=== PATIENT | male | born 1985 | race Caucasian/White ===

== ENCOUNTER 2016-05-03 14:36 | Emergency (ER) | payer SELFPAY ==
--- OUTSIDE RECORDS SUMMARY | 2016-05-03 14:56 | XMS REPORT | Continuity of Care Document ---
:1985 Author Organization [facility] ([facility]) Address [address] [place] [address] Phone [phone] Care Team Providers Name Role Phone [phone], Self Referral Primary Care Provider [phone] Source Comments This disclosure is being made pursuant to the Care Everywhere program, applicable federal and state laws, and may not contain all informaitonavailable regarding this patient.[facility] ([facility]) Active Allergies and Adverse Reactions Allergen Noted Date Severity Reactions Comments Cephalexin Urticaria (Hives) Current Medications Not on file Active Problems Problem Noted Date 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 Social History Tobacco Use Types Packs/Day Years Used Date Never Assessed Last Filed Vital Signs Vital Sign Reading Time Taken Blood Pressure - - Pulse - - Temperature - - Respiratory Rate - - Height 1.755 m (5' 9.09") 10/25/2002 8:01 AM CDT Weight 92.298 kg (203 lb 7.7 oz) 10/25/2002 8:01 AM CDT Body Mass Index 29.97 10/25/2002 8:01 AM CDT Oxygen Saturation - - Plan of Care Health Maintenance Due Date Last Done Comments Hepatitis B Vaccine (1 of 3 - Primary Series) 1985 Tdap Vaccine 10/28/1995 Lipid Disorder Screening 2002 MMR Vaccine 2002 Td Vaccine 2002 Varicella Vaccine (1 of 2 - Adult - No Evidence of 2002 Immunity) Influenza Vaccine: Seasonal (#1) 10/20/2015 Results from Last 3 Months Not on file
[2016-05-03 14:59] LABS: Hematocrit 45.8 % (42.0-52.0); Hemoglobin 15.9 gm/dL (13.5-18.0); Mean Cell Volume 85.3 fl (78-100); Mean Corpuscular Hemoglobin 29.6 pg (27-31); Mean Corpuscular Hgb Conc 34.7 g/dl (32-36); Mean Platelet Volume 9.4 fl (6.0-9.5); Neutrophil % 64.9 % (42-75.0); Platelet Count 206 K/mm3 (150-450); Red Blood Count 5.37 M/mm3 (4.7-6.0); Red Cell Distribution Width 11.9 % (11.5-14.0); White Blood Count 7.7 K/mm3 (4.0-10.5)
--- NOTE | 2016-05-03 15:03 | ERNOTE ---
Chest Pain/Cardiac HPI Chief Complaint: Chest Pain Time Seen by Provider: 05/03/16 14:45 Source: patient Exam Limitations: no limitations Immunizations: IMMUNIZATION HX Immunizations Up to Date Yes History of Influenza Vaccine No Hx Pneumococcal Vaccination No Allergies/Adverse Reactions: Allergies amoxicillin [Amoxicillin] Allergy (Verified 05/03/16 14:45) Home Medications: HOME MEDICATIONS NK [No Home Medication] 05/03/16 [Last Taken Unknown] Narrative: Patient has had left sided chest pressure/dull pain for about three days. The pain is better with standing up, not worse with exertion. He had an atrial defect repaired at age 5, had a stress test for chest pain about 1 1/2 years ago. He also has a history of anxiety. Date (Duration): 04/30/16 Timing: intermittent Severity/Quality: moderate, dull, pressure Location: left chest Chest Pain Radiation: shoulders - left Activities at Onset: none Modifying Factors - Improves: Present: other - standing Modifying Factors - Worsens: Present: other - laying down. Absent: breathing, coughing, exercise Nitro Today/Relief: no nitro taken today Aspirin Treatment Today: no aspirin today Associated Symptoms: Absent: headache, shortness of breath, fever/chills, palpitations, heartburn, nausea, vomiting, abdominal pain Prior Chest Pain/Cardiac Workup: Reports: prior chest pain. Denies: heart attack, pulmonary embolism Prior Treatment: Denies: recently seen, currently on antibiotics Review of Systems - Review of Systems Constitutional: Present: fatigue, malaise. Absent: recent illness ENT: Absent: nose congestion, sore throat Respiratory: Absent: shortness of breath, cough Cardiology: Present: See HPI, chest pain Gastrointestinal/Abdominal: Absent: nausea, vomiting Genitourinary: Present: no symptoms reported Musculoskeletal: Present: other - pain in left shoulder blade ('feels like a pinched nerve') Neurological: Absent: headache, weakness, numbness - Patient's Past Medical History Patient History - Medical: Anxiety, GERD Patient History - Cardiac/Respiratory: Other - atrial defect repaired age [age] Patient History - Cancer: No Hx of Cancer Patient History - Surgical Procedures: Other Patient History - Other: None - Social History Living Situations: home Psych History: No pertinent hx - Immunizations Immunizations Up to Date: Yes Hx Pneumococcal Vaccination: No History of Influenza Vaccine: No Physical Exam - Physical Exam General Appearance: Present: wd/wn, alert, no apparent distress, anxious Ears, Nose, Throat: Present: normal pharynx Respiratory: Present: no respiratory distress, normal breath sounds, no accessory muscle use, chest nontender, lungs clear Cardiovascular/Chest: Present: regular rate, rhythm, no murmur Gastrointestinal/Abdominal: Present: nontender, nondistended Extremity Exam: Present: no edema Neurological Exam: Present: alert, oriented, normal mood/affect Skin Exam: Present: normal color, warm/dry ED Progress - Results and Orders Patient's Lab Results:: I have reviewed the patient's lab results. - Vital Signs Patient's Vital Signs:: I have reviewed the patient's vital signs. Vital Signs: Vital Signs 05/03/16 14:41 Temperature 36.7 C Pulse Rate 106 H Respiratory 22 H Rate Blood Pressure 160/87 O2 Sat by Pulse 99 Oximetry - EKG EKG: NSR, RBBB, unchanged from 07/2014 EKG read: Interp. by me - X-Ray X-Ray #1 X-Ray: chest - no acute changes Interpretation: Reviewed by me - Progress/Reassessment Chief Complaint: Chest Pain Progress Note-Subjective: 05/03/16 16:14 discussed test results, anxiety vs musculoskeletal pain offered to make follow up appointment, will make his own Departure - Departure Clinical Impression: Anxiety Chest pain Qualifiers: Chest pain type: unspecified Qualified Code(s): R07.9 - Chest pain, unspecified Disposition: Home self-care Condition: Good Instructions: Chest Pain Observation Additional Instructions: call the clinic and make a follow up appointment
[2016-05-03 15:09] LABS: Prothrombin Time (Patient) 10.7 Seconds (9.4-11.4)
[2016-05-03 15:11] LABS: INR 1.03 INR (0.90-1.10); Partial Thrombolplastin Time 26.1 Seconds (24-32)
[2016-05-03 15:15] LABS: ALT 96 U/L (19-67); AST 50 U/L (0-48); Albumin * 4.2 gm/dl (3.4-5.0); Alkaline Phosphatase * 86 U/L (50-170); Anion Gap 12.2 mmol/L (6.8-13.8); BUN/Creatinine Ratio 14.6 (9.0-21.6); Bilirubin, Total 0.4 mg/dL (0.0-1.1); Blood Urea Nitrogen 14 mg/dL (6-23); Ca. Corrected For Albumin 8.7 mg/dL (8.4-10.2); Calcium * 9.2 mg/dL (7.9-10.9); Carbon Dioxide 29.9 mmol/L (24-32.6); Chloride 104 mmol/L (97-106); Glucose * 120 mg/dL (70-110); Potassium 4.1 mmol/L (3.4-4.6); Sodium 142 mmol/L (132-142); Total Protein 7.6 gm/dL (6.2-8.2)
[2016-05-03 15:16] LABS: Troponin I Less than 0.017 ng/ml (0.00-0.10)
[2016-05-03 16:08] VITALS: BP 162/90
== END 2016-05-03 16:19 | disposition home or self-care (01) ==
LOC: ER 14:36
DX: R07.9 Chest pain, unspecified (principal); F41.9 Anxiety disorder, unspecified